=== PATIENT | female | born 1950 | race Caucasian/White ===

== ENCOUNTER → 2017-09-16 | Outpatient (CLI) | payer BC ==
[~2017-09-16] MED LIST: CALCTAB5 PO; CIPR-255 PO; CLC100 PO; MULTTAB58 PO
--- NOTE | 2017-09-19 07:49 | MAMMOGRAPHY REPORT ---
BILATERAL DIGITAL SCREENING MAMMOGRAM TOMOSYNTHESIS WITH CAD: 09/16/2017 CLINICAL HISTORY: Routine screening. Patient has no complaints. TECHNIQUE: Breast tomosynthesis in addition to standard 2D mammography was performed. Current study was also evaluated with a Computer Aided Detection (CAD) system. COMPARISON: Comparison is made to exam dated: 11/28/2008. BREAST COMPOSITION: There are scattered areas of fibroglandular density in both breasts. FINDINGS: No suspicious masses, calcifications, or areas of architectural distortion are noted in ei ther breast. There has been no significant interval change compared to prior exams. IMPRESSION: ACR BI-RADS CATEGORY 1: NEGATIVE There is no mammographic evidence of malignancy. A 1 year screening mammogram is recommended. The pa tient will receive written notification of the results. Approximately 10% of breast cancers are not detected with mammography. A negative mammographic report should not delay biopsy if a clinically suggestive mass is present. Marleni Isbell M.D. ah/:09/16/2017 14:34:09 Tube Test Technician: Jessica GUERRAR, M, [facility] letter sent: Normal 1/2 BI-RADS Code: ACR BI-RADS Category 1: Negative
== END | disposition home or self-care (01) ==
LOC: C.MAMM 10:35
PROVIDERS: ATTEND Nurse Practitioner Family
DX: Z12.31 Encounter for screening mammogram for malignant neoplasm of breast (principal)

== ENCOUNTER 2017-10-03 22:26 | Observation (INO) | payer BC ==
[~2017-10-03] VITALS: Ht 154.9 cm; Wt 64.4 kg
[2017-10-03] MEDS ORDERED: ONDANSETRON INJ 2 MG/ML 2 ML VIAL IV STA (23:02)
[2017-10-03] MEDS ORDERED: SODIUM CHLORIDE 0.9% 1000ML 1,000 ML IV STA (23:02)
[2017-10-03] MEDS ORDERED: ACETAMINOPHEN IV 100 ML IV STA (23:32)
[2017-10-03 23:37] LABS: HEMATOCRIT 35.5 % (37-47); HEMOGLOBIN 12.7 g/dL (12.0-16.0); MEAN CELL VOLUME 86.8 fL (80-100); MEAN CORPUSCULAR HEMOGLOBIN 31.1 pg (25-34); MEAN CORPUSCULAR HGB CONC 35.8 g/dl (32-36); NEUT ABS # 2.27 K/uL (1.4-6.5); PLATELET COUNT 140 K/uL (130-400); RED CELL DISTRIBUTION WIDTH CV 12.3 % (11.5-14.5); RED CELL DISTRIBUTION WIDTH SD 39.6 fL (36.4-46.3); WHITE BLOOD COUNT 3.07 K/uL (4.8-10.8)
[2017-10-03] MEDS ORDERED: METHPOW7 PO (23:43)
[2017-10-03] MEDS ORDERED: MULT-240 PO (23:43)
[2017-10-03] MEDS ORDERED: LACT10CA3 PO (23:43)
[2017-10-03] MEDS ORDERED: DOCU100C31 PO (23:43)
[2017-10-03 23:57] LABS: ALBUMIN 3.3 gm/dl (3.4-5.0); ALT/SGPT 27 U/L (12-78); BLOOD UREA NITROGEN 7 mg/dl (7-18); CALCIUM 8.1 mg/dl (8.5-10.1); CARBON DIOXIDE 26 mmol/L (21-32); CREATININE 0.54 mg/dl (0.60-1.20); GLUCOSE 116 mg/dl (70-99); LIPASE 141 U/L (73-393); POTASSIUM 3.3 mmol/L (3.5-5.1); SODIUM 126 mmol/L (136-145)
[2017-10-04] VITALS (7 sets, daily range): BP systolic 104–124; BP diastolic 63–80; PULSE 67–77; TEMP 36.7–37.2; O2SAT 93–98; Ht 154.9 cm; Wt 64.4 kg
[2017-10-04] LABS: ALKALINE PHOSPHATASE 63 U/L (45-117); AST/SGOT 31 U/L (15-37); TOTAL PROTEIN 6.9 gm/dl (6.4-8.2)
[2017-10-04 00:19] LABS: INFLUENZA B ANTIGEN Neg for Influ B (NEG)
[2017-10-04] MEDS ORDERED: ONDANSETRON INJ 2 MG/ML 2 ML VIAL IV STA (00:21)
[2017-10-04] MEDS ORDERED: OSELTAMIVIR PHOSPHATE 75 MG CAP PO STA ×2 (00:24→17:31)
--- NOTE | 2017-10-04 02:05 | EMERGENCY ROOM VISIT NOTE ---
History Report prepared by Sera: China Harris Under the Supervision of: Dr. Panda Blair M.D. First contact with patient: 22:39 Chief Complaint: FLU LIKE SX Stated Complaint: FLU, DEHYDRATION, VOMITING History of Present Illness The patient is a 67 year old female who presents to the Emergency Room with complaints of worsening flu like symptoms starting two days ago. The patient states that her daughter was diagnosed with the flu last night. She reports that her daughter had a headache, cough, fever, and chills, but not vomiting or diarrhea. The patient states that she had a fever of 101.5 that she took Advil for it and had a headache. She states that she has been dry heaving all day today because she can no longer even keep water down. She complains of being nauseous, cough, and abdominal pain. She notes that before coming when she was vomiting, she lost control of her bowels at the same time because it felt like her stomach was cramping. She currently rates her abdominal pain as a 4/10 in severity. She notes that she had some old pasta with meat sauce a few days ago. She notes that she has not eaten in two days. The patient notes a history of Diverticulitis that she has taken Cipro for in the past. Pt denies LOC, diaphoresis, visual changes, neck pain, chest pain, breathing difficulties, abdominal pain, back pain, melena, hematochezia, urinary symptoms , numbness, weakness, lymphadenopathy, rash, or other complaints. Source of History: patient Onset: two days ago Position: other (global) Symptom Intensity: 4/10 Quality: other (global) Timing: worsening Associated Symptoms: + fevers, + headache, + cough, + nausea, + vomiting, + abdominal pain Review of Systems See HPI for pertinent positives and negatives. A total of ten systems were reviewed and were otherwise negative. Past Medical & Surgical Medical Problems: (1) Diverticulitis (2) Diverticulosis Family History No pertinent family history Social History Smoking Status: Never Smoker Marital Status: Housing Status: lives with family Occupation Status: employed Current/Historical Medications Scheduled Docusate Sodium (Docusate Sodium), 100 MG PO BID Lactobacillus-Inulin (Culturelle), 1 CAP PO DAILY Methylcellulose (Laxative) (Citrucel Fiber Laxative), 1.5 TSP PO DAILY Multiple Vitamins W/ Minerals (Womens One Daily), 1 TAB PO DAILY Allergies Coded Allergies: Electrolytes (Unverified Allergy, Unknown, GOLYTELY, 09/21/15) Replaces GOLYTELY Lovastatin (Unverified Allergy, Unknown, 09/21/15) Meclizine (Unverified Allergy, Unknown, 09/21/15) Penicillins (Unverified Allergy, Unknown, 09/21/15) Polyethylene Glycol (Unverified Allergy, Unknown, GOLYTELY, 09/21/15) Replaces GOLYTELY Quinolones (Unverified Allergy, Unknown, CIPRO, 09/21/15) Sulfa Drugs (Unverified Allergy, Unknown, 09/21/15) Physical Exam Vital Signs Date Time Temp Pulse Resp B/P (MAP) Pulse Ox O2 Delivery O2 Flow Rate FiO2 10/03/17 23:58 80 16 134/78 98 Room Air 10/03/17 22:32 36.7 76 18 133/73 96 Room Air Physical Exam GENERAL: Awake, alert, uncomfortable-appearing, in moderate distress, actively vomiting HENT: Normocephalic, atraumatic. Oropharynx unremarkable. EYES: Normal conjunctiva. Sclera non-icteric. NECK: Supple. No nuchal rigidity. FROM. No JVD. RESPIRATORY: Clear to auscultation. CARDIAC: Regular rate, normal rhythm. Extremities warm and well perfused. Pulses equal. ABDOMEN: Soft, non-distended. Epigastric tenderness to palpation. No rebound or guarding. No masses. RECTAL: Deferred. MUSCULOSKELETAL: Chest examination reveals no tenderness. The back is symmetrical on inspection without obvious abnormality. There is no CVA tenderness to palpation. No joint edema. LOWER EXTREMITIES: Calves are equal size bilaterally and non-tender. No edema. No discoloration. NEURO: Normal sensorium. No sensory or motor deficits noted. SKIN: No rash or jaundice noted. Medical Decision & Procedures ER Provider Diagnostic Interpretation: Radiology results as stated below per my review and radiologist interpretation: Chest x-ray. Findings: A chest x-ray was performed and revealed no pneumothorax , effusion, infiltrate, pulmonary edema, free air under the diaphragm, or wide mediastinum. CT ABDOMEN & PELVIS Without Contrast: No acute findings. Radiologist: Tristan Vasques MD Study ready at 00:06 and initial results transmitted at 00:32. Laboratory Results 10/03/17 23:26 Red Blood Count 4.09, Mean Corpuscular Volume 86.8, Mean Corpuscular Hemoglobin 31.1, Mean Corpuscular Hemoglobin Concent 35.8, Mean Platelet Volume 10.0, Neutrophils (%) (Auto) 74.0, Lymphocytes (%) (Auto) 13.0, Monocytes (%) (Auto) 13.0, Eosinophils (%) (Auto) 0.0, Basophils (%) (Auto) 0.0, Neutrophils # (Auto ) 2.27, Lymphocytes # (Auto) 0.40, Monocytes # (Auto) 0.40, Eosinophils # (Auto ) 0.00, Basophils # (Auto) 0.00 10/03/17 23:26 Test 10/03/17 23:26 10/03/17 23:34 White Blood Count 3.07 K/uL (4.8-10.8) Red Blood Count 4.09 M/uL (4.2-5.4) Hemoglobin 12.7 g/dL (12.0-16.0) Hematocrit 35.5 % (37-47) Mean Corpuscular Volume 86.8 fL (80-100) Mean Corpuscular Hemoglobin 31.1 pg (25-34) Mean Corpuscular Hemoglobin Concent 35.8 g/dl (32-36) Platelet Count 140 K/uL (130-400) Mean Platelet Volume 10.0 fL (7.4-10.4) Neutrophils (%) (Auto) 74.0 % Lymphocytes (%) (Auto) 13.0 % Monocytes (%) (Auto) 13.0 % Eosinophils (%) (Auto) 0.0 % Basophils (%) (Auto) 0.0 % Neutrophils # (Auto) 2.27 K/uL (1.4-6.5) Lymphocytes # (Auto) 0.40 K/uL (1.2-3.4) Monocytes # (Auto) 0.40 K/uL (0.11-0.59) Eosinophils # (Auto) 0.00 K/uL (0-0.5) Basophils # (Auto) 0.00 K/uL (0-0.2) RDW Standard Deviation 39.6 fL (36.4-46.3) RDW Coefficient of Variation 12.3 % (11.5-14.5) Immature Granulocyte % (Auto) 0.0 % Immature Granulocyte # (Auto) 0.00 K/uL (0.00-0.02) Anion Gap 8.0 mmol/L (3-11) Est Creatinine Clear Calc Drug Dose 89.3 ml/min Estimated GFR () 114.0 Estimated GFR (Non- 98.3 BUN/Creatinine Ratio 12.9 (10-20) Calcium Level 8.1 mg/dl (8.5-10.1) Magnesium Level 1.9 mg/dl (1.8-2.4) Total Bilirubin 0.3 mg/dl (0.2-1) Direct Bilirubin < 0.1 mg/dl (0-0.2) Aspartate Amino Transf (AST/SGOT) 31 U/L (15-37) Alanine Aminotransferase (ALT/SGPT) 27 U/L (12-78) Alkaline Phosphatase 63 U/L (45-117) Total Protein 6.9 gm/dl (6.4-8.2) Albumin 3.3 gm/dl (3.4-5.0) Lipase 141 U/L (73-393) Influenza Type A Antigen POS for Influ A (NEG) Influenza Type B Antigen Neg for Influ B (NEG) Laboratory results reviewed by me Medications Administered Medications (Trade) Dose Ordered Sig/Glynn Route Start Time Stop Time Status Last Admin Dose Admin Sodium Chloride 1,000 ml @ 999 mls/hr Q1H1M STAT IV 10/03/17 23:02 10/04/17 00:02 DC 10/03/17 23:02 999 MLS/HR Ondansetron HCl (Zofran Inj) 4 mg NOW STAT IV 10/03/17 23:02 10/03/17 23:05 DC 10/03/17 23:02 4 MG Acetaminophen 100 ml @ 400 mls/hr NOW STAT IV 10/03/17 23:32 10/03/17 23:46 DC 10/04/17 00:24 400 MLS/HR Ondansetron HCl (Zofran Inj) 4 mg NOW STAT IV 10/04/17 00:21 10/04/17 00:22 DC 10/04/17 00:29 4 MG Oseltamivir Phosphate (Tamiflu Cap) 75 mg NOW STAT PO 10/04/17 00:24 10/04/17 00:25 DC 10/04/17 01:28 75 MG ED Course 2243: The patient was evaluated in room C2B. A complete history and physical exam was performed. 2302: Ordered Zofran Inj 4 mg IV, NSS 1000 ml @ 999 mls/hr IV. 2330: I reevaluated the patient and she wants Tylenol for her aches and pains, but is still nauseated. 2332: Ordered Acetaminophen 100 ml @ 400 mls/hr Protocol IV. 0010: I reevaluated the patient and she is still nauseous. 0021: Ordered Zofran Inj 4 mg IV. 0024: Ordered Tamiflu Cap 75 mg PO. Medical Decision Triage Nursing notes reviewed. The patient's presentation and history were concerning for fluid symptoms, nausea, vomiting abdominal pain. Etiologies such as influenzae, metabolic, infection, hypo/hyperglycemia, electrolyte abnormalities, cardiac sources, intracerebral event, toxicologic, neurologic, interim abdominal process, as well as others were entertained. The patient was evaluated. She was retching uncontrollably initially. IV was established. She was given IV Zofran. Normal saline hydration was administered. She was concerned that she upset her stomach by taking ibuprofen without eating yesterday. She requested a dose of IV Tylenol. She still nauseated this was done. She was given additional Zofran. She was found to be hyponatremic. Influenza testing came back positive for A. CT imaging did not reveal any abnormal findings. The patient was ordered Tamiflu. Consultation was made with internal medicine. The patient was evaluated in the Emergency Room for further management. Medication Reconcilliation Current Medication List: was personally reviewed by me Blood Pressure Screening Patient's blood pressure: Normal blood pressure Will be further monitored by hospitalist. Consults Time Called: 30 Consulting Physician: Dr. Jefferson Nava Impression Primary Impression: Hyponatremia Additional Impressions: Influenza A Nausea & vomiting Scribe Attestation The scribe's documentation has been prepared under my direction and personally reviewed by me in its entirety. I confirm that the note above accurately reflects all work, treatment, procedures, and medical decision making performed by me. Departure Information Dispostion Being Evaluated By Hospitalist Referrals Jasmina Thorne (PCP) Patient Instructions My [facility] Problem Qualifiers
[2017-10-04] MEDS ORDERED: ALUMINUM/MAGNESIUM/SIMETH (MAALOX MAX) 30 ML UDC PO PRN (02:15)
[2017-10-04] MEDS ORDERED: ACETAMINOPHEN 325 MG TAB PO PRN (02:15)
[2017-10-04] MEDS ORDERED: MAGNESIUM HYDROXIDE SUSP 30 ML UDC PO PRN (02:15)
[2017-10-04] MEDS ORDERED: ONDANSETRON INJ 2 MG/ML 2 ML VIAL IV PRN (02:15)
--- NOTE | 2017-10-04 02:40 | NUR ---
Patient arrives to room 222 at this time, ambulates to bed, security monitor applied. Admission information obtained at this time, see EMR for admission details. No acute issues noted, fall risk and code word forms completed. Patient denies any acute issues at this time. Reads SR on telemetry at this time. Primary RN Khanh present for admission. Patient denies any needs upon leaving room, call putnam in reach.
[2017-10-04] MEDS ORDERED: IV FLUIDS COMPLETED PRN (03:00)
[2017-10-04] MEDS ORDERED: INFLUENZA ADMINISTRATION CHARGE ONE (04:00)
[2017-10-04] MEDS ORDERED: INFLUENZA VIRUS QUAD VACCINE 0.5 ML SYR IM. ONE (04:00)
[2017-10-04] MEDS ORDERED: PNEUMOCOCCAL ADMINISTRATION CHARGE ONE (04:00)
[2017-10-04] MEDS ORDERED: PNEUMOCOCCAL POLYSACCHARIDES 25 MCG/0.5 ML VIAL/SYR IM. ONE (04:00)
--- NOTE | 2017-10-04 04:23 | NUR ---
assessment unchanged. pt resting in bed. denies needs. sr on tele rate 60's. call putnam in reach
[2017-10-04] MEDS ORDERED: POTASSIUM CHLORIDE 20 MEQ TABCR PO STA (05:59)
--- NOTE | 2017-10-04 06:00 | History and Physical ---
History & Physical Date & Time of Service: Oct 04, 2017 at 05:43 Chief Complaint: Hyponatremia, Influenza A Primary Care Physician: Jasmina Thorne History of Present Illness Source: patient This is a 67 y/o F who presents with flu like symptoms that started 2 days ago. She reports having a headache, fever, chills, nausea but no vomiting or diarrhea. She did have a temp of 101.5. Her daughter was also diagnosed with the flu. She reports not having much of an appetite. Overall she feels fatigued and weak. She has also not been able to drink much due to her nausea. She has a history of Diverticulitis. Past Medical/Surgical History Diverticulosis Family History No pertinent family history Social History Smoking Status: Never Smoker Smokeless Tobacco Use: No Alcohol Use: none Drug Use: none Marital Status: Housing status: lives with family Occupational Status: employed Immunizations History of Influenza Vaccine: Unknown History of Tetanus Vaccine?: Unknown History of Pneumococcal: Unknown History of Hepatitis B Vaccine: Unknown Multi-Drug Resistant Organisms History of MDRO: No Allergies Coded Allergies: Electrolytes (Unverified Allergy, Unknown, GOLYTELY, 09/21/15) Replaces GOLYTELY Lovastatin (Unverified Allergy, Unknown, 09/21/15) Meclizine (Unverified Allergy, Unknown, 09/21/15) Penicillins (Unverified Allergy, Unknown, 09/21/15) Polyethylene Glycol (Unverified Allergy, Unknown, GOLYTELY, 09/21/15) Replaces GOLYTELY Quinolones (Unverified Allergy, Unknown, CIPRO, 09/21/15) Sulfa Drugs (Unverified Allergy, Unknown, 09/21/15) Home Medications Scheduled Docusate Sodium (Docusate Sodium), 100 MG PO BID Lactobacillus-Inulin (Culturelle), 1 CAP PO DAILY Methylcellulose (Laxative) (Citrucel Fiber Laxative), 1.5 TSP PO DAILY Multiple Vitamins W/ Minerals (Womens One Daily), 1 TAB PO DAILY Oseltamivir Phosphate (Tamiflu), 75 MG PO BID Review of Systems Constitutional: + fever, + chills, + weakness, + fatigue Eyes: No worsening of vision ENT: No hearing loss Respiratory: No cough, No sputum, No wheezing, No shortness of breath, No dyspnea on exertion, No dyspnea at rest Cardiovascular: No chest pain Abdomen: + nausea, No pain, No vomiting, No diarrhea, No constipation Genitourinary - Female: No dysuria, No urinary frequency, No urinary urgency Physical Exam Vital Signs Date Time Temp Pulse Resp B/P (MAP) Pulse Ox O2 Delivery O2 Flow Rate FiO2 10/04/17 04:35 36.8 67 17 124/80 (95) 95 Room Air 10/04/17 04:00 95 Room Air 10/04/17 02:46 82 18 129/83 99 10/04/17 02:40 36.7 69 16 106/69 95 Room Air 10/03/17 23:58 80 16 134/78 98 Room Air 10/03/17 22:32 36.7 76 18 133/73 96 Room Air General Appearance: no apparent distress Eyes: PERRL, EOMI ENT: hearing grossly normal Neck: supple Respiratory/Chest: lungs clear, normal breath sounds, no respiratory distress, no accessory muscle use Cardiovascular: regular rate, rhythm, no edema, no JVD Abdomen/GI: normal bowel sounds, non tender, soft Back: no CVA tenderness Extremities/Musculoskelatal: no calf tenderness, no pedal edema Neurologic/Psych: certified financial planner II-XII nml as tested, no motor/sensory deficits, alert, oriented x 3 Diagnostics Laboratory Results Results Past 24 Hours Test 10/03/17 23:26 10/03/17 23:34 10/04/17 04:44 Range/Units White Blood Count 3.07 4.8-10.8 K/uL Red Blood Count 4.09 4.2-5.4 M/uL Hemoglobin 12.7 12.0-16.0 g/dL Hematocrit 35.5 37-47 % Mean Corpuscular Volume 86.8 80-100 fL Mean Corpuscular Hemoglobin 31.1 25-34 pg Mean Corpuscular Hemoglobin Concent 35.8 32-36 g/dl Platelet Count 140 130-400 K/uL Mean Platelet Volume 10.0 7.4-10.4 fL Neutrophils (%) (Auto) 74.0 % Lymphocytes (%) (Auto) 13.0 % Monocytes (%) (Auto) 13.0 % Eosinophils (%) (Auto) 0.0 % Basophils (%) (Auto) 0.0 % Neutrophils # (Auto) 2.27 1.4-6.5 K/uL Lymphocytes # (Auto) 0.40 1.2-3.4 K/uL Monocytes # (Auto) 0.40 0.11-0.59 K/uL Eosinophils # (Auto) 0.00 0-0.5 K/uL Basophils # (Auto) 0.00 0-0.2 K/uL RDW Standard Deviation 39.6 36.4-46.3 fL RDW Coefficient of Variation 12.3 11.5-14.5 % Immature Granulocyte % (Auto) 0.0 % Immature Granulocyte # (Auto) 0.00 0.00-0.02 K/uL Sodium Level 126 136-145 mmol/L Potassium Level 3.3 3.5-5.1 mmol/L Chloride Level 92 98-107 mmol/L Carbon Dioxide Level 26 21-32 mmol/L Anion Gap 8.0 3-11 mmol/L Blood Urea Nitrogen 7 7-18 mg/dl Creatinine 0.54 0.60-1.20 mg/dl Est Creatinine Clear Calc Drug Dose 89.3 ml/min Estimated GFR () 114.0 Estimated GFR (Non- 98.3 BUN/Creatinine Ratio 12.9 10-20 Random Glucose 116 70-99 mg/dl Calcium Level 8.1 8.5-10.1 mg/dl Magnesium Level 1.9 1.8-2.4 mg/dl Total Bilirubin 0.3 0.2-1 mg/dl Direct Bilirubin < 0.1 0-0.2 mg/dl Aspartate Amino Transf (AST/SGOT) 31 15-37 U/L Alanine Aminotransferase (ALT/SGPT) 27 12-78 U/L Alkaline Phosphatase 63 45-117 U/L Total Protein 6.9 6.4-8.2 gm/dl Albumin 3.3 3.4-5.0 gm/dl Lipase 141 73-393 U/L Influenza Type A Antigen POS for Influ A NEG Influenza Type B Antigen Neg for Influ B NEG Impression Assessment and Plan This is a 67 y/o F who presents with fevers, chills, body aches, headaches and is positive for Flu A. Influenza A Anh-Flu Respiratory Precautions Hyponatremia Given IV fluids in the ER Trend BMP Fluid restriction Hypokalemia 40 PO K recheck BMP am DVT proph Lovenox Code: Full Attending addendum: I have physically seen this patient, have supervised the medical residents activities, and agree with the H&P unless as otherwise noted. Assessment and Plan: Influenza A-- Continue Tamiflu 75 mg by mouth twice a day begun in the ED for full 5 day course Usual precautions Hyponatremia/hypokalemia/dehydration-- Place on IV fluids Give oral potassium supplementation 40 mEq Check BMP and magnesium levels in the a.m. Level of Care Med/Surg Advanced Directives Existing Living Will: No Existing Power of Surgical Pathologist: Yes VTE Prophylaxis VTE Risk Assessment Done? Y/N: Yes Risk Level: Moderate
--- NOTE | 2017-10-04 07:13 | DIAGNOSTIC IMAGING REPORT ---
SINGLE VIEW CHEST CLINICAL HISTORY: Vomiting. FINDINGS: An AP, portable, upright chest radiograph is compared to study dated 10/20/2009. The examination is degraded by portable technique and patient rotation. The cardiomediastinal silhouette is unremarkable. There is minimal dependent atelectasis. The lungs and pleural spaces are otherwise clear. No pneumothorax is seen. The skeletal structures are osteopenic. The bony thorax is grossly intact. IMPRESSION: No acute cardiopulmonary abnormality. Electronically signed by: Jeremy Richardson M.D. 10/04/2017 7:11 AM Dictated Date/Time: 10/04/2017 7:11 AM
--- NOTE | 2017-10-04 07:27 | DIAGNOSTIC IMAGING REPORT ---
CT SCAN OF THE ABDOMEN AND PELVIS WITHOUT IV CONTRAST CLINICAL HISTORY: Vomiting. Nausea. Upper abdominal pain. COMPARISON STUDY: Abdominal CT dated 09/21/2015. TECHNIQUE: CT scan of the abdomen and pelvis is performed from the lung bases to the proximal femora. Images are reviewed in the axial, sagittal, and coronal planes. IV contrast was not administered for this examination as per the referring clinician. Note that the examination was performed in suboptimal fashion without oral and IV contrast. A dose lowering technique was utilized adhering to the principles of ALARA. CT DOSE: 276.93 mGy.cm FINDINGS: Lung bases: The heart is normal in size and without pericardial effusion. The lung bases are clear noting dependent atelectasis. Liver: The unenhanced liver is normal in size, contour, and attenuation. There is no intrahepatic biliary ductal dilatation. Gallbladder: Unremarkable. Spleen: Normal in size and attenuation. Pancreas: Unremarkable. Adrenal glands: Unremarkable. Kidneys: The unenhanced kidneys are normal in size and without hydronephrosis. There are no renal calculi identified. There is no evidence of contour deforming renal mass lesion. Abdominal vasculature: The abdominal aorta is normal in course and caliber noting mild atherosclerotic calcification. Bowel: There is moderate to advanced colonic diverticulosis without CT evidence of acute diverticulitis. No bowel obstruction is seen. The appendix is well-visualized and normal. Peritoneum: There is no intraperitoneal free air or abdominal ascites. Lymphadenopathy: None. Pelvic viscera: The bladder, uterus, and adnexa are normal as visualized. Skeletal structures: The skeletal structures are osteopenic. There is mild lumbosacral spondylosis. No lytic or blastic lesions are seen. Sclerotic degenerative change is noted in the sacroiliac joints and pubic symphysis. IMPRESSION: 1. Suboptimal examination without oral and IV contrast. 2. There are no acute infectious or inflammatory findings in the abdomen or pelvis. 3. Colonic diverticulosis without CT evidence of acute diverticulitis. Electronically signed by: Jeremy Richardson M.D. 10/04/2017 7:26 AM Dictated Date/Time: 10/04/2017 7:21 AM
--- NOTE | 2017-10-04 08:00 | NUR ---
A/ID: [id number]. Denies nausea or vomiting at this time. SR on the monitor. No edema. Lungs clear on room air. Abdomen soft, non-tender. Has not voided yet to assess. Skin intact. IV site intact, saline locked. Call putnam within reach, encouraged to ring for assistance. Will continue to monitor.
[2017-10-04] MEDS: DOCUSATE SODIUM 100 MG CAP PO SCH ×2 (08:21→18:13)
[2017-10-04] MEDS: CEROVITE ADV FORMULA TAB PO SCH ×2 (08:21→09:00)
[2017-10-04] MEDS ORDERED: OSELTAMIVIR PHOSPHATE 75 MG CAP PO SCH (09:00)
[2017-10-04] MEDS ORDERED: LACTOBACILLUS ACIDOPHILUS (FLORANEX) TAB PO SCH (09:00)
[2017-10-04 09:34] LABS: CREATININE 0.41 mg/dl (0.60-1.20); POTASSIUM 3.3 mmol/L (3.5-5.1)
[2017-10-04] MEDS ORDERED: ENOXAPARIN 40 MG/0.4 ML SYR SC SCH (10:00)
--- NOTE | 2017-10-04 10:39 | NUR ---
pt arrived to room 261. oriented pt to room, call putnam, and hospital orientation. verbalized understanding. denies any current pain or discomforts. ambulating independently throughout room. voided in BR. call putnam in reach. will monitor.
--- NOTE | 2017-10-04 12:17 | NUR ---
pt enquiring of her getting a flu swab test since he is exhibiting symptoms and she is positive for flu A. called Dr Nunez of request. she reports she will look into the policy and call back.
[2017-10-04] MEDS ORDERED: POTASSIUM CHLORIDE 20 MEQ TABCR PO ONE (16:00)
--- NOTE | 2017-10-04 16:00 | NUR ---
OBS note: Pt is alert and oriented x4. VS are stable. IV is saline locked. Pt is tolerating AHA diet. OOB independently to bathroom. No complaints of pain. pt has been taking tamiflu. Discharge plans are uncertain at this time.
[2017-10-04] MEDS ORDERED: POTASSIUM CHLORIDE 10 MEQ TABCR PO ONE (16:30)
[2017-10-04] MEDS ORDERED: TMF75 PO (17:27)
--- NOTE | 2017-10-04 17:31 | Discharge Instructions ---
Discharge Instructions Date of Service Oct 04, 2017. Admission Reason for Admission: Hyponatremia, Influenza A Discharge Discharge Diagnosis / Problem: influenza Discharge Goals Goal(s): Diagnostic testing, Therapeutic intervention Activity Recommendations Activity Limitations: resume your previous activity . Instructions / Follow-Up Instructions / Follow-Up influenza -fortunately you're getting better already -we treat influenza with 5 days of tamiflu (oseltamivir) twice a day -- you'll need 7 more doses after discharge, with your next dose tomorrow morning -your electrolyte abnormalities (low sodium, and low potassium) were due to having the flu, being sick, etc - and are already improving. at this point, normal oral intake will suffice to have things correct back to normal. we'd like you to have labs checked on tuesday with results to [facility] - have them drawn at the [facility] office where you normally have bloodwork done. -while you'll be less contagious by the day, flu is a very contagious respiratory virus spread in saliva/respiratory secretions and can float in the air with a cough/sneeze/etc. try to minimize exposing others until next week - then your contagious risk should be minimal Current Hospital Diet Patient's current hospital diet: AHA Diet (Heart Healthy) Discharge Diet Recommended Diet: Regular Diet Pending Studies Studies pending at discharge: no Medical Emergencies . Who to Call and When: Medical Emergencies: If at any time you feel your situation is an emergency, please call 911 immediately. . Non-Emergent Contact Non-Emergency issues call your: Primary Care Provider . . "Provider Documentation" section prepared by Tristan Leon. . VTE Core Measure Inpt VTE Proph given/why not?: Enoxaparin (Lovenox)SQ
--- NOTE | 2017-10-04 19:13 | Discharge Summary ---
Discharge Summary Date of Service Oct 04, 2017. Discharge Summary Admission Date: Oct 04, 2017 at 02:15 Discharge Date: Oct 04, 2017 Discharge Disposition: Home Principal Diagnosis: Influenza A Problems/Secondary Diagnoses: Hyponatremia, hypokalemia Medication Reconciliation New Medications: Oseltamivir Phosphate (Tamiflu) 75 Mg Cap 75 MG PO BID, #7 CAP Continued Medications: Docusate Sodium (Docusate Sodium) 100 Mg Cap 100 MG PO BID, CAP Lactobacillus-Inulin (Culturelle) 1 Cap Cap 1 CAP PO DAILY Methylcellulose (Laxative) (Citrucel Fiber Laxative) 1 Pow Pow 1.5 TSP PO DAILY Multiple Vitamins W/ Minerals (Womens One Daily) 1 Tab Tab 1 TAB PO DAILY Discharge Exam Review of Systems: Constitutional: + fever, + chills, + weakness, + fatigue Respiratory: No cough, No sputum, No wheezing, No shortness of breath, No dyspnea on exertion, No dyspnea at rest, No hemoptysis, No problem reported Abdomen: + nausea Genitourinary - Female: No dysuria, No urinary frequency, No urinary urgency , No urinary incontinence, No urinary retention, No hematuria, No dysmenorrhea, No menorrhagia, No metrorrhagia, No rash, No vaginal bleeding, No vaginal discharge, No vaginal itching, No vulvodynia, No , No problem reported Physical Exam: General Appearance: WD/WN, no apparent distress Eyes: normal inspection, PERRL, EOMI ENT: hearing grossly normal, pharynx normal Neck: supple, no adenopathy, thyroid normal, no JVD, no carotid bruits, trachea midline Respiratory/Chest: chest non-tender, lungs clear, normal breath sounds, no respiratory distress, no accessory muscle use Cardiovascular: regular rate, rhythm, no edema, no gallop, no JVD, no murmur , normal peripheral pulses Abdomen / GI: normal bowel sounds, non tender, soft, no organomegaly Extremities: normal inspection, no pedal edema Neurologic/Psychiatric: carcass splitter II-XII nml as tested, no motor/sensory deficits , alert, normal mood/affect, normal reflexes, oriented x 3 Skin: normal color Hospital Course 67 yo Female PMH diverticulitis presented to the ER with complaints of worsening flu like symptoms starting two days ago. She stated that her daughter was diagnosed with the flu last night. She states that she had a fever of 101.5 , dry heaves, nausea, vomiting, cough, abdominal pain and reported one instance of fecal incontinence associated with abdominal cramping. She notes that she has not eaten in two days. Pt denied LOC, diaphoresis, visual changes, neck pain, chest pain, breathing difficulties, abdominal pain, back pain, melena, hematochezia, urinary symptoms , numbness, weakness, lymphadenopathy, rash, or other complaints. Patient was found positive for Influenza A Influenza A Started on Anh-Flu, 5 day course total Hyponatremia Given 1L IV fluids in the ER Sodium responded well from 126 to 133. Hypokalemia of 3.3 2 doses of 40 mg PO K+ given Recommend recheck of BMP in 3 days (Tuesday) as outpatient. Supportive measures discussed as well as methods to decrease risk of transmission to others Resident Physician Supervision Note: I interviewed and examined the patient. Discussed with Dr. Nunez and agree with findings and plan as documented in the note. Any exceptions or clarifications are listed here: None Documented By: Tristan Leon feeling better wants to go home. discussed tamiflu, low Na/K, PO intake, outpt f/u vitals noted nad breathing unlabored no pallor or icterus influenza - improving, stable for home, finish course of tamiflu hyponatremia/hypokalemia - related to flu GI side effects - repleted reasonably , anticipate ongoing improvement w better PO intake (which she is showing) stable for home, repeat labs tuesday. Total Time Spent: Less than 30 minutes This includes examination of the patient, discharge planning, medication reconciliation, and communication with other providers. Discharge Instructions Please refer to the electronic Patient Visit Report (Discharge Instructions) for additional information. Additional Copies To Jasmina Thorne Resident Tracking Resident Involvement: Resident Care Provided Care Provided: Adult Hospital Medicine
== END 2017-10-04 19:20 | disposition home or self-care (01) ==
LOC: C.EDB 22:27 → C.2T 10-04 02:15 → ENRESERV 10-04 02:24 → C.MS2W 10-04 09:22 → ENRESERV 10-04 09:48
PROVIDERS: ADMIT Hospitalist; ATTEND Family Medicine
DX: J10.2 Influenza due to other identified influenza virus with gastrointestinal manifestations (principal); E87.1 Hypo-osmolality and hyponatremia; E87.6 Hypokalemia; K57.30 Diverticulosis of large intestine without perforation or abscess without bleeding